=== PATIENT | female | born 1980 | race African-American/Black ===

== ENCOUNTER 2020-09-25 09:18 | Emergency (ER) | payer BC ==
[~2020-09-25] VITALS: Ht 165.1 cm; Wt 54.5 kg
[~2020-09-25 09:18] MED LIST: ADVIL LIQUI-GE200 MG; ALBUTEROL0.09 MG/A1 IH; AMOXICILLIN 50500 MG PO; BACTRIM DS 8001 TAB PO; BENADRYL25 M2 PO; BIAXIN 500MG T500 MG PO; BIAXIN XL 500M500 MG PO; CETAPHIL1 CRE TP; COLACE 100100 MG/CAP PO; CORTISPORIN EAR10 M1 OT; DESOXIMETASONE 0.05% TP; DIPROLENE0.05% TP; Entex LA PO; IRON325 MG PO; LORTAB 5/500 501 TAB PO; MEDROL 4MG DOSPA4 MG PO; MOTRIN 800800 MG/TAB PO; NO HOME MEDICATIONS; NORCO 325 MG-51 TAB PO; PERCOCET 325 MG1 TA2 PO; PHENERGAN 25 TA25 MG PO; POLYSPORIN 5001 OI1 TP; PRENATA1 CTB PO; SENOKOTXTRA17.2 MG PO; TYLENOL 325MG325 MG PO; ZOFRAN 4MG T4 MG/TAB PO; ZOVIRAX400 MG PO; [UNRECOGNIZED DRUG - SUPPLY] TP
[2020-09-25] MEDS ORDERED: CARTIA XT120 MG PO (09:35)
[2020-09-25 10:51] LABS: COLLECTION METHOD CLEAN CATCH
[2020-09-25 10:54] LABS: BASO % 0.3 % (0.0-2.0); EOS % 0.1 % (0-4.0); GRAN # 11.4 (1.4-6.5); GRAN % 80.6 % (42.2-75.2); HEMOGLOBIN 11.4 g/dl (12.5-16.0); LYMPH # 1.9 (1.2-3.4); LYMPH % 13.3 % (20.0-51.0); MEAN CELL VOLUME 83 fl (80.0-100.0); MEAN CORPUSCULAR HEMOGLOBIN 28 pg (27.0-31.0); MEAN CORPUSCULAR HGB CONC 33 g/dl (33.0-37.0); MEAN PLATELET VOLUME 8.8 fl (7.4-10.4); MONO # 0.7 (0.1-0.6); MONO % 5.2 % (1.7-9.3); PLATELET COUNT 311 K/mm3 (130-400); RED BLOOD COUNT 4.14 M/mm3 (4.10-5.30)
[2020-09-25 10:55] LABS: HEMATOCRIT 34.3 % (37.0-47.0)
[2020-09-25 11:04] LABS: PH 6 (5-8); URINE APPEARANCE Clear; URINE BACTERIA None Seen /hpf; URINE BILIRUBIN Negative (NEGATIVE); URINE BLOOD 1+ (NEGATIVE); URINE COLOR Yellow; URINE GLUCOSE Negative (NEGATIVE); URINE KETONE Negative (NEGATIVE); URINE LEUKOCYTE ESTERASE Negative (NEGATIVE); URINE NITRATE Negative (NEGATIVE); URINE PROTEIN(semi-quant) Negative (NEGATIVE); URINE UROBILINOGEN Negative (NEGATIVE)
[2020-09-25 11:07] LABS: ALANINE AMINOTRANSFERASE 24 U/L (4-34); ALBUMIN 4.1 gm/dL (3.5-5.0); ALKALINE PHOSPHATASE 60 U/L (50-136); ANION GAP 4 mmol/L (7-16); AST,SGOT 37 U/L (15-37); BILIRUBIN,TOTAL 0.4 mg/dL (0.0-1.0); BLOOD UREA NITROGEN 12 mg/dL (7-17); CALCIUM 8.3 mg/dL (8.4-10.2); CARBON DIOXIDE 23 mmol/L (22-30); CHLORIDE 112 mmol/L (98-107); CREATININE, serum 0.62 (0.52-1.25); GLUCOSE 82 mg/dL (74-106); LIPASE 55 U/L (23-300); POTASSIUM 3.9 mmol/L (3.4-5.0); SODIUM 138 mmol/L (137-145)
[2020-09-25 11:08] LABS: C-REACTIVE PROTEIN < 0.5 mg/dL (0.0-0.9)
[2020-09-25] MEDS ORDERED: ZOFRAN ODT4 MG PO (11:32)
[2020-09-25 11:45] VITALS: BP 136/82; PULSE 70; TEMP 98.6
== END 2020-09-25 11:55 | disposition home or self-care (01) ==
LOC: COL.ER 09:18
PROVIDERS: Family Medicine
DX: K52.9 Noninfective gastroenteritis and colitis, unspecified (principal)
CPT/HCPCS: J2405; J7120